=== PATIENT | male | born 1985 | race Two or more races ===

== ENCOUNTER 2018-10-07 02:36 | Emergency (ER) | payer OTHER ==
[~2018-10-07] VITALS: Ht 177.8 cm; Wt 106.6 kg
[2018-10-07 02:42] VITALS: BP 130/86
[2018-10-07] MEDS ORDERED: IBUPROFEN 400 MG TABLET PO ONE (03:00)
[2018-10-07] MEDS ORDERED: IBUPROFEN 400 MG TABLET ONE (03:07)
--- NOTE | 2018-10-07 03:39 | NUR ---
Patient discharged to home in stable condition. Written and verbal after care instructions given. Patient verbalizes understanding of instruction AND RX. PT AMBULATED OUT WITH A STEADY GAIT.
== END 2018-10-07 03:43 | disposition home or self-care (01) ==
LOC: ER 02:38
DX: M54.5 Low back pain (principal); Z60.2 Problems related to living alone
CPT/HCPCS: 99282; A4606; Z7610